=== PATIENT | male | born 2000 | race Two or more races ===

== ENCOUNTER 2024-12-07 20:56 | Emergency (ER) | payer BC ==
[2024-12-07 21:14] LABS: APPEARANCE,URINE CLEAR; BILIRUBIN,URINE NEGATIVE (NEGATIVE); COLOR,URINE YELLOW; GLUCOSE,URINE NEGATIVE (NEGATIVE); KETONES,URINE NEGATIVE (NEGATIVE); LEUKOCYTE ESTERASE,URINE NEGATIVE (NEGATIVE); NITRITE,URINE NEGATIVE (NEGATIVE); OCCULT BLOOD,URINE NEGATIVE (NEGATIVE); PROTEIN,URINE NEGATIVE (NEGATIVE); UROBILINOGEN,URINE 0.2 EU/dL (<2.0)
[2024-12-07] MEDS: Tamsulosin 0.4 MG Cap.ER PO ONE (21:34)
[2024-12-07 22:57] LABS: C. TRACHOMATIS BY PCR NOT DETECTED; N. GONORRHOEAE BY PCR NOT DETECTED
== END 2024-12-07 23:34 | disposition home or self-care (01) ==
LOC: MW.ED 20:56
DX: R30.0 Dysuria (principal); R35.0 Frequency of micturition
CPT/HCPCS: 81003; 87491; 87591; 99283; A9270